=== PATIENT | male | born 2000 | race Hispanic/Latino ===

== ENCOUNTER 2019-11-08 07:56 | Emergency (ER) | payer OTHER | END 2019-11-08 09:00 | disposition home or self-care (01) | LOC: EDH 07:56 | DX: M62.830 Muscle spasm of back (principal); R11.2 Nausea with vomiting, unspecified; Z72.0 Tobacco use ==

== ENCOUNTER 2020-04-18 20:51 | Emergency (ER) | payer OTHER ==
[2020-04-18] MEDS ORDERED: NEOMYCIN/POLYMYXIN/HC OTIC SUSP 10ML BOTTLE ONE (21:29)
[2020-04-18] MEDS ORDERED: ACETAMINOPHEN EXTRA STRENGTH 500 MG TABLET ONE (21:29)
[2020-04-18] MEDS ORDERED: AMOXICILLIN/POTASSIUM CLAV 875-125 TABLET PO ONE (21:35)
== END 2020-04-18 21:50 | disposition home or self-care (01) ==
LOC: EDH 20:51
DX: H60.91 Unspecified otitis externa, right ear (principal); H66.91 Otitis media, unspecified, right ear; M41.9 Scoliosis, unspecified; Z72.0 Tobacco use

== ENCOUNTER 2020-07-28 08:57 | Emergency (ER) | payer SELFPAY ==
[2020-07-28 09:25] LABS: BASOPHILS % (AUTO) 0.5 % (0.0-5.0); EOSINOPHILS % (AUTO) 0.9 % (0.0-8.0); LYMPHOCYTES % (AUTO) 14.8 % (21.0-51.0); MEAN CORPUSCULAR HEMOGLOBIN 31.9 pg (27.0-33.0); MEAN CORPUSCULAR VOLUME 93.9 fL (79-99); MONOCYTES % (AUTO) 6.2 % (3.0-13.0); NEUTROPHILS % (AUTO) 77.3 % (40.0-77.0); PLATELET COUNT (AUTO) 266 K/uL (130-400); RED BLOOD CELL COUNT(AUTO) 5.11 MIL/uL (4.50-6.20); RED CELL DISTRIBUTION WIDTH 12.1 % (11.0-15.5); WHITE BLOOD COUNT (AUTO) 11.6 K/uL (4.8-10.8)
[2020-07-28 09:37] LABS: APPEARANCE,URINE Clear (CLEAR); BILIRUBIN,URINE Negative (NEGATIVE); COLOR,URINE Yellow (YELLOW); CREATININE 1.1 mg/dL (0.5-1.5); GLUCOSE, URINE (UA) Negative (NEGATIVE); KETONES,URINE Negative (NEGATIVE); LEUKOCYTE ESTERASE ,URINE Negative (NEGATIVE); NITRATE,URINE Negative (NEGATIVE); OCCULT BLOOD,URINE Negative (NEGATIVE); POTASSIUM 4.1 mmol/L (3.5-5.1); PROTEIN,URINE Negative (NEGATIVE)
[2020-07-28 09:41] LABS: ALBUMIN 4.3 g/dL (3.5-5.0); BILIRUBIN,TOTAL 0.3 mg/dL (0.2-1.0); TOTAL PROTEIN, SERUM 8.1 g/dL (6.0-8.3)
[2020-07-28 09:44] LABS: AMPHET/METH SCREEN,URINE NEGATIVE (NEGATIVE); BARBITURATE SCREEN, URINE NEGATIVE (NEGATIVE); BENZODIAZEPINES SCREEN,URINE NEGATIVE (NEGATIVE); CANNABINOID SCREEN,URINE POSITIVE (NEGATIVE); COCAINE SCREEN,URINE NEGATIVE (NEGATIVE); OPIATE SCREEN,URINE NEGATIVE (NEGATIVE); PHENCYCLIDINE SCREEN,URINE NEGATIVE (NEGATIVE)
== END 2020-07-28 12:55 | disposition home or self-care (01) ==
LOC: EDH 08:57
DX: R55 Syncope and collapse (principal); M54.2 Cervicalgia; Z72.0 Tobacco use
CPT/HCPCS: 36415; 70450; 71046; 72040; 80053; 80305; 81003; 85025; 93005

== ENCOUNTER 2021-03-18 04:56 | Emergency (ER) | payer SELFPAY ==
[~2021-03-18] VITALS: Ht 185.4 cm; Wt 118.8 kg
[2021-03-18 05:02] VITALS: BP 146/98
[2021-03-18] MEDS ORDERED: 0.9%NACL 1000ML 1,000 ML IV ONE (05:15)
[2021-03-18] MEDS ORDERED: PROCHLORPERAZINE EDISYLATE 5 MG/ML 2 ML VIAL IVP ONE (05:15)
[2021-03-18] MEDS ORDERED: FAMOTIDINE 20MG VIAL IV ONE (05:15)
[2021-03-18] MEDS ORDERED: DiphenhydrAMINE HCL 50 MG/ML VIAL IV ONE (05:15)
[2021-03-18 05:27] LABS: BASOPHILS % (AUTO) 0.5 % (0.0-5.0); EOSINOPHILS % (AUTO) 2.6 % (0.0-8.0); HEMATOCRIT 46.2 % (42-54); LYMPHOCYTES % (AUTO) 22.3 % (21.0-51.0); MEAN CORPUSCULAR HGB CONC 34.2 g/dL (32.0-36.0); MEAN CORPUSCULAR VOLUME 93.7 fL (79-99); MONOCYTES % (AUTO) 8.1 % (3.0-13.0); NEUTROPHILS % (AUTO) 66.2 % (40.0-77.0); PLATELET COUNT (AUTO) 280 K/uL (130-400); RED BLOOD CELL COUNT(AUTO) 4.93 MIL/uL (4.50-6.20); RED CELL DISTRIBUTION WIDTH 12.4 % (11.0-15.5)
[2021-03-18 05:48] LABS: CREATININE 1.1 mg/dL (0.5-1.5); POTASSIUM 4.6 mmol/L (3.5-5.1)
[2021-03-18 06:00] LABS: BILIRUBIN,TOTAL 0.2 mg/dL (0.2-1.0); TOTAL PROTEIN, SERUM 7.8 g/dL (6.0-8.3)
[2021-03-18 06:33] VITALS: BP 124/74
[2021-03-18] MEDS ORDERED: PROC5TAB54 PO (07:44)
[2021-03-18 07:49] VITALS: BP 178/64
== END 2021-03-18 08:48 | disposition home or self-care (01) ==
LOC: EDH 04:56
DX: R10.9 Unspecified abdominal pain (principal); R11.0 Nausea
CPT/HCPCS: 36415; 74176; 80053; 83690; 84484; 85025; 96361; 96374; 96375; 99284; J1200; J3490; J7030